=== PATIENT | male | born 1965 | race Caucasian/White ===

== ENCOUNTER → 2019-08-10 15:40 | Outpatient (CLI) | payer MEDICARE | END | disposition home or self-care (01) | LOC: D.LAB 15:40 | PROVIDERS: ATTEND Internal Medicine Hematology & Oncology | DX: I80.9 Phlebitis and thrombophlebitis of unspecified site (principal); Z00.00 Encounter for general adult medical examination without abnormal findings; R79.9 Abnormal finding of blood chemistry, unspecified; E72.11 Homocystinuria ==